=== PATIENT | female | born 1980 | race African-American/Black ===

== ENCOUNTER 2021-04-26 11:02 | Emergency (ER) | payer OTHER, SELFPAY ==
[2021-04-26 11:13] VITALS: BP 125/71; PULSE 70; RESP 16; TEMP 36.3; O2SAT 100
--- NOTE | 2021-04-26 11:27 | ED.FEMALEGU ---
HPI - Female Genitourinary General Chief complaint: [employer] Stated complaint: Yeast Infection Time Seen by Provider: 04/26/21 11:31 Source: patient and RN notes reviewed Mode of arrival: ambulatory Limitations: no limitations History of Present Illness HPI Narrative: 40-year-old female presents to the [facility] with complaint of vaginal discharge after changing soap patient has tried [id number] yeast infection which did not do anything. Patient states she cannot get any relief from the itching. Denies abdominal pain or chest pain. Denies any chance of . Does not believe she has an STD but is willing to be tested. MD elicited complaint: vaginal discharge Related Data Allergies Allergy/AdvReac Type Severity Reaction Status Date / Time latex Allergy Unknown Rash Verified 04/26/21 11:06 Review of Systems Review of Systems: All systems reviewed & are unremarkable except as noted in HPI and below Constitutional: Constitutional: Reports no additional constitutional complaints, Denies chills and Denies fatigue Eyes: Eyes: Reports no additional eye complaints ENT: Reports system reviewed and no additional complaints, except as documented Cardiovascular: Cardiovascular: Reports no additional cardiovascular complaints Respiratory: Respiratory: Reports no additional respiratory complaints Genitourinary: Genitourinary: Denies nocturia, Denies genital lesions, Denies dysuria, Denies flank pain, Denies urinary incontinence and Reports vaginal discharge Musculoskeletal: Musculoskeletal: Reports no additional musculoskeletal complaints Integumentary/Breasts: Skin/Breast: Reports system reviewed and no additional complaints, except as docu Neurologic: Reports system reviewed and no additional complaints, except as documented Psychiatric: Psychiatric: Reports no additional psychiatric complaints Allergic/Immunologic: Allergic/Immunologic: Reports no additional allergic/immunologic complaints [facility] Past Medical History Medical History (Updated 04/26/21 @ 19:15 by Daisha Coronel) Patient denies medical problems Surgical History Surgical History (Updated 04/26/21 @ 19:15 by Daisha Coronel) No significant past surgical history Social History Social History (Updated 04/26/21 @ 19:15 by Daisha Coronel) Living arrangements: with family Gender identity (if verbalized by the patient): Female Comments At the time of my signature, I reviewed and agree with the nursing past medical, surgical, social, and family history. There is no relevant family history pertinent to the patient complaint. Exam Const: General: healthy appearing, no acute distress and alert Nutritional Appearance: well nourished Orientation/consciousness: patient oriented x3 Limitations: no limitations HENMT: Head: normal to inspection Ears: external ears normal Eyes: Pupils: Equal, round and reactive pupils present Neck: Neck: normal visual inspection, no lymphadenopathy and no meningeal signs Chest: Chest palpation & inspection: normal inspection of the chest Resp: Effort & Inspection: normal respiratory effort and no use of accessory muscles Auscultation: clear to auscultation bilaterally, no crackles, no rales, no rhonchi and no wheezes Cardio: Rate: regular rate Rhythm: regular rhythm GI: GI Palp: Yes Soft to palpation and No Tenderness to palpation present (GI) : External Female Exam: normal external appearance, erythema and No External ecchymosis (female) Speculum Exam - Vagina: abnormal vaginal discharge white and yellow, erythematous, no lacerations, no lesions, No vaginal bleeding and no masses Speculum Exam - Cervix: normal appearance of the cervix and Cervical os closed Other: Chaperoned by Ana PASTRANA Back/Spine/Pelvis: Back: no CVA tenderness Skin: General skin exam: normal color Rashes: no rashes Wounds: no wounds Neuro: General: patient oriented x3, moves all extremities, no meningeal signs and no focal motor
== END 2021-04-26 11:55 | disposition home or self-care (01) ==
PROVIDERS: Emergency Provider Nurse Practitioner
DX: N76.0 Acute vaginitis (principal)
CPT/HCPCS: 87070; 87077; 87491; 87591; 87661; 99214; G0463